=== PATIENT | female | born 1965 | race Caucasian/White ===

== ENCOUNTER 2021-07-04 16:14 | Emergency (ER) | payer OTHER ==
[~2021-07-04] VITALS: Ht 165.1 cm; Wt 66.0 kg
[2021-07-04 17:17] LABS: CLARITY URINE CLEAR (CLEAR); COLOR URINE YELLOW (YELLOW); KETONES URINE NEGATIVE (NEGATIVE); LEUKOCYTE ESTERASE URINE NEGATIVE (NEGATIVE); NITRITE URINE NEGATIVE (NEGATIVE); OCCULT BLOOD URINE NEGATIVE (NEGATIVE); PROTEIN URINE NEGATIVE (NEGATIVE); SPECIFIC GRAVITY URINE 1.003 (1.005-1.030); UROBILINOGEN URINE 0.2 E.U./dL (0.2-1.0)
[2021-07-04] MEDS ORDERED: IBUPROFEN 600MG TABLET PO STA (18:26)
[2021-07-04 18:52] LABS: BASOPHILS % 0.8 % (0.0-2.0); EOSINOPHILS % 1.3 % (0.0-5.0); HEMATOCRIT. 39.2 % (36.0-48.0); HEMOGLOBIN. 12.8 g/dL (12.0-16.0); LYMPHOCYTES % 38.7 % (20.0-50.0); MEAN CORPUSCULAR HEMOGLOBIN 30.6 pg (28.0-32.0); MEAN CORPUSCULAR VOLUME 93.8 fL (81.0-99.0); MONOCYTES % 7.8 % (2.0-8.0); NEUTROPHILS % 51.4 % (40.0-76.0); PLATELET 211 x1000/uL (130-400); RED BLOOD CELL COUNT 4.18 mill/uL (4.2-5.4); RED CELL DISTRIBUTION WIDTH 14.5 % (11.6-14.6)
[2021-07-04 18:55] LABS: CHLORIDE 108 mEq/L (98-107)
[2021-07-04] MEDS ORDERED: IBUP-2028 MT (22:22)
[2021-07-04 22:36] VITALS: BP 146/48
== END 2021-07-04 22:38 | disposition home or self-care (01) ==
LOC: ER 16:14
DX: R07.89 Other chest pain (principal); F17.290 Nicotine dependence, other tobacco product, uncomplicated
CPT/HCPCS: 36415; 71045; 80053; 81003; 81025; 83880; 84484; 85025; 85379; 93005; 99285; 99406